=== PATIENT | female | born 2000 | race Caucasian/White ===

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

== ENCOUNTER 2025-06-04 01:04 | Day surgery (SDC) | payer OTHER, SELFPAY ==
--- NOTE | 2025-05-23 15:20 | SUR.PREOP ---
Report to the Outpatient Waiting Room, entrance under the green pavilion located off [facility], at time _0830_ on date _06/04/2025_. Planned Procedure Time: _1030_.? Time changes happen often and if your time is changed the preop area will call you the afternoon before. - You and your visitor will be asked to self-screen and do not enter if you have any COVID symptoms. Please call surgeon if you need to reschedule. - A mask is optional within the hospital at this time. Patients may have clear liquids (water, carbonated beverages, clear teas, apple juice) until 3 hours (0730) prior to surgery with a maximum of 20 ounces. - No food from midnight until time of surgery and no smoking, or chewing tobacco (or any form of nicotine). No chewing gum, candy or mints. - Infants may have breast milk until 4 hours before surgery, infant formula 6 hours prior to surgery. - Children will be allowed to drink immediately following surgery.? If applicable, please bring a bottle or sippy cup to assist with drinking. Juice, water, soda, and popsicles are readily available.? For infants on formula, please bring formula the day of surgery.? Pacifiers are allowed. Take only the following medications with a SIP of water on the morning of surgery: _FLUOXETINE, CONTROL_ DO NOT STOP ANY OF YOUR OTHER PRESCRIPTION MEDICATIONS PRIOR TO SURGERY EXCEPT THE FOLLOWING Hold all vitamins and supplements for 3 days per anesthesiologist. Medications to discontinue per physician _NA_ Date to take last dose_NA_ Please no make-up, nail sudanese, hairspray, perfume, deodorant, or body powder the day of surgery.? No jewelry (including any body piercings) or valuables the day of surgery, leave them at home.? Please take a shower or bath the night before, or the morning of, surgery with an antibacterial soap.? Wear comfortable, loose fitting clothing.? Children are encouraged to wear pajamas. - Jewelry must be removed prior to entering the operating room.? Rings and piercings that are not removed may be cut off. - The hospital will not accept responsibility for valuables.? - Please leave all valuables, including medications, at home the day of surgery. If you are going home after surgery, a licensed flag car driver must drive you home.? - NO public transportation without another adult if you receive anesthesia. - We recommend that an adult stay with you for 24 hours following discharge. - We also recommend that you do not drive, make important decision, drink alcoholic beverages, or take any drugs that were not prescribed by your health care provider for at least 24 hours after your discharge time. For Pediatric surgeries, we recommend two adults accompany the child home. Follow any additional instructions given to you from your surgeon. Telephone instructions given to _TIMOTEO_and asked if any additional questions and then verbalized understanding. Patient advised to call surgeon office or pre surgery nurse liaison [phone] if any additional questions.
[2025-05-23 15:25] VITALS: BMI 40.4
[2025-06-04] VITALS (11 sets, daily range): BP systolic 111–139; BP diastolic 70–89; PULSE 61–116; RESP 12–24; TEMP 36.4; O2SAT 97–100
--- OUTSIDE RECORDS SUMMARY | 2025-06-04 01:09 | XMS_ITS | Clinical Summary ---
Author Organization [facility] Address [address] [place] [id number] Phone Care Team Providers Care Stem Dryer Maintainer Name Role Phone Savita Jimenez APRN, ASSOCIATE PROFESSOR OF MATHEMATICS Primary Care Provider [phone] Allergies Active Allergy Reactions Criticality Noted Date Comments Sulfamethoxazole-Trimethoprim Rash Medium 2022 Medications Nortrel 135, 28, 1-35 MG-MCG Tablet Take 1 Tablet by mouth daily. Active FLUoxetine (PROzac) 10 MG CapsuleIndicati ons:Palpitation ,Anxiety Take 1 Capsule by mouth daily. 90 Capsule 12/22/2024 Active propranolol (INDERAL) 10 MG TabletIndicatio ns:Palpitation, Anxiety Take 1 Tablet by mouth 3 times daily. 90 Tablet 12/22/2024 Active Active Problems Problem Noted Date Diagnosed Date Anxiety 05/20/2023 Mild intermittent asthma without complication Thyroid nodule 05/20/2023 Vapes nicotine containing substance 05/20/2023 Family History Medical History Relation Name Comments No Known Problems Father Relation Name Status Comments Father Alive Mother Alive Social History Tobacco Use Types Packs/Day Years Used Date Smoking Tobacco: Former Cigarettes Smokeless Tobacco: Never Tobacco Cessation:Counseling Given: Not Answered Alcohol Use Standard Drinks/Week Comments Not Currently 0 (1 standard drink = 0.6 oz pur e alcohol) [facility] Utilities Answer Date Recorded In the past 12 months has e [employer], gas, oil, or water company threatened to shut off services in your home? No 01/17/2025 Social Connection and Isolation Panel Answer Date Recorded In a typical week, how many times do you talk on the phone with family, friends, or neighbors? More than three times a week 01/17/2025 How often do you get togethe r with friends or relatives? Once a week 01/17/2025 How often do you attend chur or tenriism services? Patient declined 01/17/2025 Do you belong to any clubs o r organizations such as samaritan groups, unions, fraternal or athletic groups, or school groups? Patient declined 01/17/2025 How often do you attend meet ings of the clubs or organizations you belong to? Patient declined 01/17/2025 Are you , , di vorced, , never , or living with a partner? Never 01/17/2025 AUDIT-C Answer Date Recorded Q1: How often do you have a drink containing alcohol? Never 01/17/2025 Q2: How many drinks containi ng alcohol do you have on a typical day when you are drinking? Patient does not drink Q3: How often do you have si x or more drinks on one occasion? Never 01/17/2025 Overall Financial Resource Strain (CARDIA) Answe r Date Recorded How hard is it for you to pa y for the very basics like food, housing, medical care, and heating? Not very hard 01/17/2025 PHQ-2 Answer Date Recorded Total Score - Questions 1-9 0 11/24 [facility] - Occupational Stress Questionnaire Answer Date Recorded Do you feel stress - tense, restless, nervous, or anxious, or unable to sleep at night because your mind is troubled all the time - these days? Only a little 01/17/2025 Exercise Vital Sign Answer Date Recorde d On average, how many days pe r week do you engage in moderate to strenuous exercise (like a brisk walk)? 2 days 01/17/2025 On average, how many minutes do you engage in exercise at this level? 30 min 01/17/2025 Hunger Vital Sign Answer Date Recorded Within the past 12 months, y ou worried that your food would run out before you got the money to buy more. Never true 01/17/20 25 Within the past 12 months, t he food you bought just didn't last and you didn't have money to get more. Never true 01/17/2025 PRAPARE - Transportation Answer Date Re corded In the past 12 months, has l ack of transportation kept you from medical appointments or from getting medications? No 12/24 In the past 12 months, has l ack of transportation kept you from meetings, work, or from getting things needed for daily living? No 01/17/2025 Housing Stability Vital Sign Answer Nic e Recorded In the last 12 months, was t here a time when you were not able to pay the mortgage or rent on time? No 01/17/2025 In the past 12 months, how m any times have you moved where you were living? 0 01/17/2025 At any time in the past 12 m [facility], were you homeless or living in a retirement (including now)? No 01/17/2025 Sexually Active Control Partners Comments Yes Oral Contraceptive Comments No Sex and Gender Information Value Date Recorded Sex Assigned at Not on file Legal Sex Female 6:14 PM RAISE MINER Gender Identity Not on file Sexual Orientation Not on file Last Filed Vital Signs Vital Sign Reading Time Taken Comments Blood Pressure 120/78 01/19/2025 4:08 PM RAISE MINER Pulse 96 01/19/2025 4:08 PM RAISE MINER Temperature 36.3 C (97.3 F) 01/19/2025 4:08 PM RAISE MINER Respiratory Rate 18 01/19/2025 4:08 PM RAISE MINER Oxygen Saturation 97% 01/19/2025 4:08 PM RAISE MINER Inhaled Oxygen Concentration - - Weight 103 kg (227 lb) 01/19/2025 4:08 PM RAISE MINER Height 162.6 cm (5' 4) 01/19/2025 4:08 PM RAISE MINER Body Mass Index 38.96 01/19/2025 4:08 PM RAISE MINER Plan of Treatment Health Maintenance Due Date Last Done Comments Hepatitis C Virus (HCV) Screening 2001 Meningococcal B Immunization (1 of 2 - Standard) 2017 Pneumococcal Immunization Combined (1 of 2 - PCV) 2020 07/11/2002, 01/10/2002, 2001, Additional history exists Pap Smear 2022 SARS-COV-2 Immunization ( season) 2024 11/19/2021, 03/10/2021, 02/16/2021 Influenza Immunization (#1) 07/23/202508/23, 08/30/2020, 09/30/2017, Additional history exists Respiratory Syncytial Virus (RSV) Immunization (Adult) (1 - 1-dose 75+ series) 2076 Hepatitis B Immunization Completed 002, 2001, 2001 TdaP Immunization Completed 2012 Human Papillomavirus (HPV) Immunization Completed 11/17/2013, 07/03/2013, 2012 Meningococcal Immunization (ACWY) Completed 07/30/2017, 07/03/2013 Rotavirus Immunization Aged Out No lo nger eligible based on patient's age to complete this topic Insurance Care Teams Stem Dryer Maintainer Relationship Specialty Start Date End Date Savita Jimenez, NEGATIVE CUTTER, ASSOCIATE PROFESSOR OF MATHEMATICS [address] [place] [address] PCP - General Certified Nurse Practitioner 12/22/24
--- OUTSIDE RECORDS SUMMARY | 2025-06-04 01:09 | XMS_ITS | Referral Summary ---
Author Organization [facility] at the Medical Office Building Address [address] [place] [id number] Care Team Providers Care Welt Slasher Name Role Phone John Garza NP Primary Care Provider [phone] Encounters Date Type Department Care Team Description 06/01/2025 1:30 PM CDT Office Visit [facility] Primary Care at [address] [phone] John Garza NP Anxiety (Primary Dx) 05/16/2025 Results Follow-Up [facility] of [address] [phone] Ingrid Hector MD NM Thyroid Imaging with Uptakes 05/09/2025 7:33 AM CDT - 05/09/2025 11:59 PM CDT Hospital Encounter [address] [address] Discharge Disposition: Discharge to home or self care 05/09/2025 7:32 AM CDT - 05/09/2025 11:59 PM CDT Hospital Encounter [address] [address] Abnormal thyroid function test; Left thyroid nodule Discharge Disposition: Discharge to home or self care 04/02/2025 Results Follow-Up [facility] [address] [phone] Ingrid Hector MD Thyroid peroxidase antibody (TPO), T3, free, T4, free, TSH 03/30/2025 12:00 PM CDT Lab [address] [phone] Abnormal thyroid function test 03/30/2025 11:30 AM CDT Office [facility] of [facility] [id number] [place] [address] [address] [place] [address] Ingrid Hector MD Abnormal thyroid function test (Primary Dx); Left thyroid nodule 03/29/2025 Documentation [facility] Medical [facility] Primary Care at [address] [phone] John Garza NP 03/27/2025 Results Follow-Up [facility] Primary Care at [address] [phone] John Garza NP 48 HR Holter Monitor 03/19/2025 Results Follow-Up [facility] Primary Care at [address] [phone] John Garza NP Cytology 03/14/2025 8:05 AM CDT - 03/14/2025 11:59 PM CDT Hospital Encounter [address] [address] 2, Amh Rad Rn Jairo Hernandez Ir Thyroid nodule Discharge Disposition: Discharge to home or self care 03/13/2025 8:04 AM CDT - 03/13/2025 11:59 PM CDT Hospital Encounter [facility] [address] [place] [address] Palpitations Discharge Disposition: Discharge to home or self care 03/09/2025 Telephone [facility] Primary Care at [address] [phone] John Garza NP 03/06/2025 Telephone [facility] [address] [place] [address] Elvira Olvera RN 03/06/2025 Telephone [facility] Diabetes and Endocrinology [address] [place] [phone] Ingrid Hector MD New referral to Endocrinology 03/05/2025 Telephone [facility] [address] [place] [address] Elvira Olvera RN 03/05/2025 Orders Only [facility] Medical [facility] Primary Care at [address] [phone] John Garza NP Thyroid nodule (Primary Dx) 03/05/2025 Telephone [facility] Medical [facility] Primary Care at [address] [phone] Shameka Hollis MA General Surgery Referral 03/05/2025 Orders Only [facility] [address] [facility] [address] [place] [address] Marissa Quinones MA from Last 3 Months Allergies Active Allergy Reactions Criticality Noted Date Comments Sulfa (Sulfonamide Antibiotics) Hives Medium 05/22 Sulfamethoxazole-Trimethoprim Hives,Rash Medium 2022 Medications Nortrel , 28, 1-35 mg-mcg per tablet Take 1 tablet by mouth daily Active propranoloL (INDERAL) 10 mg tabletIndicatio ns:Anxiety Take 1 tablet (10 mg total) by mouth 3 (three) times a day as needed (for anxiety) 90 tablet 3 5 Active albuterol HFA (PROVENTIL HFA,VENTOLIN HFA,PROAIR HFA) 90 mcg/actuation inhaler Inhale 2 puffs every 6 (six) hours as needed for wheezing Active FLUoxetine (PROzac) 20 mg capsuleIndicati ons:Anxiety Take 1 capsule (20 mg total) by mouth daily 90 capsule 3 5 Active FLUoxetine 10 mg tablet/capsuleI ndications:Anxi ety Take 1 tablet/capsul e (10 mg total) by mouth daily 90 tablet/capsu le 3 5 06/01/20 25 Discontinu ed(Patient Reported) Active Problems Problem Noted Date Diagnosed Date Anxiety 05/20/2023 Assessment & Plan (06/01/2025 1:52 PM CDT): Orders: FLUoxetine (PROzac) 20 mg capsule; Take 1 capsule (20 mg total) by mouth daily Assessment & Plan (03/02/2025 4:08 PM CDT): Orders: FLUoxetine 10 mg tablet/capsule; Take 1 tablet/capsule (10 mg total) by mouth daily propranoloL (INDERAL) 10 mg tablet; Take 1 tablet (10 mg total) by mouth 3 (three) times a day as needed (for anxiety) Mild intermittent asthma without complication Assessment & Plan (03/02/2025 4:08 PM CDT): Thyroid nodule 05/20/2023 Assessment & Plan (03/02/2025 4:08 PM CDT): Orders: Ambulatory referral to Endocrinology; Future Ambulatory referral to General Surgery; Future Immunizations Immunization Administration Dates Next Due DTP 10/10/2002, 2,2001,09/06 HPV, Quadrivalent 11/17/2013,07/03/2013,07/06/20 12 Hep B, Adolescent or Pediatric 01/10/2002,2000,2001 HiB 07/11/2002, 2,2001,09/06 IPV 01/10/2002,2001,2001 Influenza, Quadrivalent, Spl it, Preservative Free, Intramuscular 08/30/2020,09/30/2017,10/22/2014 Influenza, Trivalent, IM (MDV) 09/18/2021 Influenza, Trivalent, Preser vative Free, Intramuscular 10/05/2012 MMR 07/11/2002 Meningococcal MCV4P (Menactra) 07/30/2017,2012 Pneumococcal Conjugate 7-Valent 07/11/20 02,01/10/2002,2001,09/06 Tdap 2012 Varicella 07/11/2002 Social History Tobacco Use Types Packs/Day Years Used Date Smoking Tobacco: Every Day Vaping Passive Smoke Exposure: Past Smokeless Tobacco: Never Tobacco Cessation:Ready to Q uit: Not Asked; Counseling Given: Not Answered AUDIT-C Answer Date Recorded Q1: How often do you have a drink containing alc ohol? Monthly or less 03/02/2025 Q2: How many drinks containi ng alcohol do you have on a typical day when you are drinking? 1 or 2 03/02/2025 Q3: How often do you have si x or more drinks on one occasion? Never 03/02/2025 PHQ-2 Answer Date Recorded PHQ-2 Total Score (If total score is 3 or more points, staff should administer the PHQ-9) 0 06/01/2025 Personal Safety Answer Date Recorded Have you ever been in or are you currently in a harmful physical or emotional relationship or is someone making you feel afraid or unsafe? 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 Gender Identity Not on file Sexual Orientation Not on file Last Filed Vital Signs Vital Sign Reading Time Taken Comments Blood Pressure 106/72 06/01/2025 1:36 PM CDT Pulse 75 06/01/2025 1:36 PM CDT Temperature 36.5 C (97.7 F) 06/01/2025 1:36 PM CDT Respiratory Rate 18 03/14/2025 8:45 AM CDT Oxygen Saturation 97% 06/01/2025 1:36 PM CDT Inhaled Oxygen Concentration - - Weight 106.6 kg (235 lb) 06/01/2025 1:36 PM CDT Height 162.6 cm (5' 4) 06/01/2025 1:36 PM CDT Body Mass Index 40.34 06/01/2025 1:36 PM CDT Plan of Treatment Not on file Procedures Procedure Name Priority Date/Time Associated Diagnosis Comments NM THYROID IMAGING WITH UPTAKE(S) Schedule Routine, Read Routine (OP Routine) 05/09/2025 2:36 PM CDT Abnormal thyroid function test Left thyroid nodule TSH Routine 03/30/2025 12:02 PM CDT Abnormal thyroid function test T4, FREE Routine 03/30/2025 12:02 PM CDT Abnormal thyroid function test T3, FREE Routine 03/30/2025 12:02 PM CDT Abnormal thyroid function test THYROID STIMULATING IMMUNOGLOBULIN Routine 03/30/2025 12:02 PM CDT Abnormal thyroid function test THYROID PEROXIDASE ANTIBODY Routine 03/30/2025 12:02 PM CDT Abnormal thyroid function test TSH RECEPTOR ANTIBODY Routine 03/30/2025 12:02 PM CDT Abnormal thyroid function test US GUIDED THYROID FINE NEEDLE ASPIRATION 1ST LESION Schedule Routine, Read Routine (OP Routine) 03/14/2025 9:59 AM CDT Thyroid nodule CYTOLOGY Routine 03/14/2025 12:00 AM CDT Thyroid nodule HOLTER MONITOR 48 HR Routine 03/13/2025 8:08 AM CDT Palpitations HM PAP SMEAR Routine 05/13/2023 from Last 3 Months or Most Recently Relevant to Health Maintenance Results * NM Thyroid Imaging with Uptakes (05/09/2025 2:36 PM CDT) Anatomical Region Laterality Modality N/A Nuclear Medicine 05/09/2025 2:51 PM CDT Narrative 05/09/2025 2:56 PM CDT EXAM DESCRIPTION: NM THYROID IMAGING WITH UPTAKE(S) REASON FOR STUDY: Low TSH, thyroid nodule, Uptake, increased or decreased, focal or diffuse TECHNIQUE: Delayed multiplanar scintigrams were obtained. RADIOPHARMACEUTICAL: 236 uCi I-123 (sodium iodide) p.o. COMPARISON: None. Correlation with the thyroid ultrasound and FNA 01/08/2025 and FNA 03/14/2025. FINDINGS: There is a hyperfunctioning thyroid nodule which suppresses remainder of the thyroid gland activity. This appears to be just to the left of the suprasternal notch marker and note is made of a left thyroid nodule on ultrasound therefore this is most likely a hyperfunctioning autonomous left thyroid nodule. The 6-hour radioactive iodine uptake is 18.6 % (normal range 4-19%). IMPRESSION: Hyperfunctioning autonomous thyroid nodule. THIS IS AN ELECTRONICALLY VERIFIED FINAL REPORT 05/09/2025 2:56 PM - Electronically signed by Richard Ghosh M.D. CH: CH Report ID: [id number] Reading Location: [id number] Procedure Note Richard Ghosh Jr., MD - 05/09/2025 EXAM DESCRIPTION: NM THYROID IMAGING WITH UPTAKE(S) REASON FOR STUDY: Low TSH, thyroid nodule, Uptake, increased ordecreased, focal or diffuse TECHNIQUE: Delayed multiplanar scintigrams were obtained. RADIOPHARMACEUTICAL: 236 uCi I-123 (sodium iodide) p.o. COMPARISON: None. Correlation with the thyroid ultrasound and FNA01/08/2025 and FNA 03/14/2025. FINDINGS: There is a hyperfunctioning thyroid nodule which suppresses remainder ofthe thyroid gland activity. This appears to be just to the left of the suprasternal notch marker and note is made of a left thyroid nodule on ultrasound therefore this is most likely a hyperfunctioning autonomousleft thyroid nodule. The 6-hour radioactive iodine uptake is 18.6 %(normal range 4-19%). IMPRESSION: Hyperfunctioning autonomous thyroid nodule. THIS IS AN ELECTRONICALLY VERIFIED FINAL REPORT 05/09/2025 2:56 PM - Electronically signed by Richard Ghosh M.D. CH: CH Report ID: [id number] Reading Location: [place] [address] us Ingrid Fuller MD IM NM PROCEDURES F inal Result * TSH receptor antibody (03/30/2025 12:02 PM CDT) TSH receptor ab <1.10 0.00 - 1.75 IUnits/L [facility] Comment: ADDITIONAL INFORMATION At a decision limit of 1.75 IU/L, this assay has 97% sensitivity and 99% specificity for detection of Graves' disease. In healthy individuals and in patients with thyroid disease without diagnosis of Graves' disease, the upper limit of anti-TSHR values are 1.22 IU/L and 1.58 IU/L, respectively (97.5th percentiles). Test Performed by: [facility] [address] [place] [address] Steak Tenderizer Machine: Estrellita Barrera Ph.D.; CLIA# [id number] Blood 03/30/2025 12:0 2 PM CDT 03/30/2025 6:36 PM CDT Ingrid Fuller MD LAB BLOOD ORDERABLE S Final Result Performing Organization Address City/[facility]/ZIP Co de Phone Number [place] [address] [place] [address] [facility] * Thyroid peroxidase antibody (TPO) (03/30/2025 12:02 PM CDT) Anti Thyroid Peroxidase <30 <=34 IUnits/mL Comment: ATPO Interpretive Data Results may be up to 28% higher in patients receiving Itraconazole. Current interpretive data was last revised 2021. Testing performed by: [facility], [address] [place]., [address] Blood 03/30/2025 12:0 2 PM CDT 03/30/2025 9:38 PM CDT Ingrid Fuller MD LAB BLOOD [place] [address] [address] [facility] [place] [address] * Thyroid stimulating immunoglobulin (03/30/2025 12:02 PM CDT) TSIG <1.0 <=1.3 [facility] Comment: Test Performed by: [facility] [address] [place] [address] Steak Tenderizer Machine: Estrellita Barrera Ph.D.; CLIA# [id number] Blood 03/30/2025 12:0 2 PM CDT 03/30/2025 6:49 PM CDT us Ingrid Fuller MD LAB BLOOD ORDERABLE S Final Result [place] [address] [place] [address] [facility] * T3, free (03/30/2025 12:02 PM CDT) Free T3 4.0 2.0 - 4.4 pg/mL Blood 03/30/2025 12:0 2 PM CDT 03/30/2025 6:36 PM CDT us Ingrid Fuller MD LAB BLOOD ORDERABLE S Final Result Performing Organization Address City/[facility]/ZIP Co de Phone Number [facility] [address] [place] [address] * (ABNORMAL) TSH (03/30/2025 12:02 PM CDT) Thyroid Stimulating Hormone 0.02(L) 0.30 - 4.20 mcIUnit/mL Blood 03/30/2025 12:0 2 PM CDT 03/30/2025 6:36 PM CDT us Ingrid Fuller MD LAB BLOOD ORDERABLE S Final Result [place] [place] [address] [facility] [place] [address] * T4, free (03/30/2025 12:02 PM CDT) Free T4 1.07 0.90 - 1.70 ng/dL Blood 03/30/2025 12:0 2 PM CDT 03/30/2025 6:36 PM CDT us Ingrid Fuller MD LAB BLOOD ORDERABLE S Final Result [place] [address] [address] [place] [address] * US Guided Thyroid Fine Needle Aspiration 1st Lesion (03/14/2025 9:59 AM CDT) Anatomical Region Laterality Modality Thyroid N/A Ultrasound 03/14/2025 12:3 4 PM CDT Addenda Addendum by Paul Martino DO on 03/15/2025 2:58 PM CDT ADDENDUM: This addendum report supersedes the original report dated Pathology impression: 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 Pending Afirma testing. END OF ADDENDUM REPORT THIS IS AN ELECTRONICALLY VERIFIED FINAL REPORT 03/15/2025 2:58 PM Addendum Electronically signed by Paul Martino D.O. PS: PS Report ID: [id number] Reading Location: [id number] Narrative 03/14/2025 12:35 PM CDT EXAM DESCRIPTION: US GUIDED THYROID FINE NEEDLE ASPIRATION 1ST LESION HISTORY: Thyroid nodule ultrasound guided fine-needle aspiration of this nodule was requested. COMPARISON: 01/05/2025 TECHNIQUE/FINDINGS: Comparison was made to thyroid ultrasound dated 01/05/2025. Immediately prior to the procedure, the healthcare team performed the safety pause and verbally confirmed that the patient, the planned procedure, the site and side were accurate. Preprocedure images redemonstrate the nodule in the left thyroid lobe, which was previously characterized as a TI-RADS 3 nodule. The skin was prepped using standard aseptic technique. Local anesthesia was achieved with injection of 5 mL of 1% lidocaine in the skin and superficial tissues. Fine needle aspiration was performed of the thyroid nodule under sonographic guidance with 4 passes made with a 25-gauge needle. Needle placement was documented with sonographic images. An on-site pathologist confirmed specimen adequacy. No complications were noted. Hemostasis was achieved. A sterile bandage and an ice pack were applied to the site. The patient tolerated the procedure well without complication. Post procedure pain control was adequate. Post procedure education was completed including pain management instructions. Estimated blood loss: <5 mL IMPRESSION: Ultrasound guided fine-needle aspiration of a left thyroid nodule. Pathology is pending. THIS IS AN ELECTRONICALLY VERIFIED FINAL REPORT 03/14/2025 12:35 PM - Electronically signed by Paul Martino D.O. PS: PS Report ID: [id number] Reading Location: [id number] Procedure Note Paul Martino, DO - 03/14/2025 EXAM DESCRIPTION: US GUIDED THYROID FINE NEEDLE ASPIRATION 1ST LESION HISTORY: Thyroid nodule ultrasound guided fine-needle aspiration of this nodule was requested. COMPARISON: 01/05/2025 TECHNIQUE/FINDINGS: Comparison was made to thyroid ultrasound dated 01/05/2025. Immediatelyprior to the procedure, the healthcare team performed the safety pause andverbally confirmed that the patient, the planned procedure, the site and side were accurate. Preprocedure images redemonstrate the nodule in the left thyroid lobe,which was previously characterized as a TI-RADS 3 nodule. The skin was prepped using standard aseptic technique. Local anesthesia was achieved withinjection of 5 mL of 1% lidocaine in the skin and superficial tissues. Fine needle aspiration was performed of the thyroid nodule under sonographic guidancewith 4 passes made with a 25-gauge needle. Needle placement was documentedwith sonographic images. An on-site pathologist confirmed specimen adequacy. No complications were noted. Hemostasis was achieved. A sterile bandage andan ice pack were applied to the site. The patient tolerated the procedurewell without complication. Post procedure pain control was adequate. Post procedure education was completed including pain management instructions. Estimated blood loss: <5 mL IMPRESSION: Ultrasound guided fine-needle aspiration of a left thyroid nodule. Pathology is pending. THIS IS AN ELECTRONICALLY VERIFIED FINAL REPORT 03/14/2025 12:35 PM - Electronically signed by Paul Martino D.O. PS: PS Report ID: [id number] Reading Location: [id number] us John Garza CONSTITUTIONAL LAW PROFESSOR IMG US PROCEDURES Edited Resu lt - Final * Cytology (03/14/2025 12:00 AM CDT) Fluid (Thyroid Gland (Cytology)) 03/14/2025 9:42 AM CDT Narrative PATHOLOGY [facility] ([facility]) - 03/15/2025 2:18 PM CDT EPIC results best viewed via link to PDF [facility] Department of Pathology [address] [place] [address] Note to Patients: This report may contain a detailed description of human tissue sent by a health care provider to the laboratory for pathologic evaluation. The content of this report is essential for diagnosis and may provide important critical findings. This information may be unfamiliar to patients to review without a medical professional present. It is advised that the patient review this report in the presence of a health care provider who can answer questions and explain the details. 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 - Pending Afirma testing. Bhargav Lizama M.D. Report Electronically Reviewed and Signed Out By Bhargav Lizama M.D. 03/15/2025 14:18:56VANESSA Longoria(ASCP)Addenda: Addendum Addendum Comment Material was submitted to [facility] for Afirma thyroid molecular analysis on the left lower nodule fine-needle aspirate (Nodule A on the Afirma report) The report can be viewed in the patient s electronic medical record. If access to the EMR is not available, please call pathology for a hard copy of the report ([phone]). Bhargav Lizama M.D.Report Electronically Reviewed and Signed Out By Bhargav Lizama M.D. 03/26/2025 14:51:55 Specimen(s) Received: A: FNA, Thyroid, Left Inferior Nodule Clinical History: The patient is a 24 year old female with a thyroid nodule Immediate Assessment: Site A: Left inferior thyroid 3.5 cm Pass #1, diagnosis: Rare follicular cells. Pass #2, diagnosis: Scattered follicular cell groups (at least 6 groups of at least 10 cells). Pass #3, diagnosis: Scattered follicular cell groups (at least 6 groups of at least 10 cells). Juan Luis Guzmán MD Gross Description: 1 container labeled Left Inferior Thyroid Nodule received with 30 cc pink fluid. 6 slides received from 3 passes. Entire specimen processed. 1 ThinPrep made. QNS for cell block. Afirma vial received and stored. Microscopic Description: Sections show scattered follicular groups and is considered adequate for evaluation. Many of the groups are composed of fairly round monotonous nuclei. There are some groups with Hurthle cell change as well as microfollicle formation seen. No definitive features of papillary thyroid carcinoma are appreciated. There is some occasional background colloid present. Given the microfollicle formation as well as Hurthle cell change, the lesion is best classified as atypia of undetermined significance (Yankton 3). A sample will be sent for Afirma attesting and the results will be reported in an addendum. The performance characteristics of some immunohistochemical stains, fluorescence in-situ hybridization tests and immunophenotyping by flow cytometry cited in this report (if any) were determined by the Surgical Pathology Department at as part of an ongoing quality process engineer program and in compliance with federally mandated regulations drawn from the Clinical Laboratory Improvement Act of 1988 (CLIA '88). Some of these tests rely on the use of analyte specific reagents and are subject to specific labeling requirements by the US Food and Drug Administration. Such diagnostic tests may only be performed in a facility that is certified by the Department of Health and Human Services as a high complexity laboratory under CLIA '88. The FDA has determined that such clearance or approval is not necessary. This test is used for clinical purposes. It should not be regarded as investigational or for research. Nevertheless, federal rules concerning the medical use of analyte specific reagents require that the following disclaimer be attached to the report: This test was developed and its performance characteristics determined by the Surgical Pathology Department [facility]. It has not been cleared or approved by the U. S. Food and Drug Administration. Unless otherwise noted all cytology processing, staining and screening is performed at ([address] [place] [address]). REPORT IMAGES AND SCANNED DOCUMENTS, IF INCLUDED, ONLY VIEWABLE IN PDF VERSION OF REPORT us John Garza CONSTITUTIONAL LAW PROFESSOR LAB CYTOLOGY ORDERABLES Final Result PATHOLOGY [facility] ([address] [id number] * 48 HR Holter Monitor (03/13/2025 8:08 AM CDT) Anatomical Region Laterality Modality Electrocardiogra phy 03/13/2025 8:20 AM CDT Narrative 03/26/2025 2:16 PM CDT [address] [address] HOLTER MONITOR Patient Name: TIMOTEO SYKES : 2000 Study Date: 03/13/2025 8:20:50 AM Gender: F Tech: Ref Provider: JOHN GARZA Height(Cm): BSA: Weight(Kg): Order Provider: JOHN GARZA PROCEDURES: Holter Report: Holter Monitor Report. INDICATIONS: R00.2 Palpitations. FINDINGS: Protocol: Recording Duration (Ordered): [id number] Number of Diary entries 2025-03-13 08:20:50 CONCLUSIONS: 1. Predominant rhythm is normal sinus rhythm with a minimum heart rate of 48 beats per minute in sinus and a maximum heart rate of 158 beats per minute also in sinus. Average heart rate of 77 beats per minute. Heart rate was controlled 91% of the time, tachy 7% of the time and theodora 2% of the time. Total monitoring time of 2 days 0 hours 0 minutes. 2. Heart rate and rate variability is appropriate. 3. No prolonged pauses. 4. Rare PACs with only 20 PACs corresponding to less than 1% of total beats. There was an asymptomatic 5 beat run of SVT at 141 beats per minute. 5. Rare PVCs with only 2 PVCs amounting to less than 1% of total beats. 6. There were 4 patient activated events most with symptoms of rapid/fast heartbeat and fluttering/skipped beats. All noted to be in sinus rhythm ranging in heart rate from 72-96 beats per minute with no significant findings. Electronically Signed By: Dr Brian Hanson 03/26/2025 2:15:23 PM CDT Procedure Note Brian Hanson MD - 03/26/[address] [place] [address] HOLTER MONITOR Patient Name: TIMOTEO SYKES : 2000 Study Date: 03/13/2025 8:20:50 AM Gender: F Tech: Ref Provider: JOHN GARZA Height(Cm): BSA: Weight(Kg): Order Provider: JOHN GARZA PROCEDURES: Holter Report: Holter Monitor Report. INDICATIONS: R00.2 Palpitations. FINDINGS: Protocol: Recording Duration (Ordered): [id number] Number of Diary entries 2025-03-13 08:20:50 CONCLUSIONS: 1. Predominant rhythm is normal sinus rhythm with a minimum heart rate of48 beats per minute in sinus and a maximum heart rate of 158 beats per minute also insinus. Average heart rate of 77 beats per minute. Heart rate was controlled 91% of the time, tachy 7% of the time and brady2% of the time. Total monitoring time of 2 days 0 hours 0 minutes. 2. Heart rate and rate variability is appropriate. 3. No prolonged pauses. 4. Rare PACs with only 20 PACs corresponding to less than 1% of totalbeats. There was an asymptomatic 5 beat run of SVT at 141 beats per minute. 5. Rare PVCs with only 2 PVCs amounting to less than 1% of total beats. 6. There were 4 patient activated events most with symptoms of rapid/fastheartbeat and fluttering/skipped beats. All noted to be in sinus rhythm ranging in heart rate from 72-96 beats perminute with no significant findings. Electronically Signed By: Dr Brian Hanson 03/26/2025 2:15:23 PM CDT John Garza NP [facility] PROCEDURE S Final Result * PAP SMEAR (05/13/2023) SCRIBED Pap test neg 05/13/2023 Historical Provider HEALTH MAINTENANCE Final Result from Last 3 Months or Most Recently Relevant to Health Maintenance Insurance [facility] PL[facility] Care Teams Welt Slasher Relationship Specialty Start Date End Date John Garza NP [address] [facility] [address] [place] [address] PCP - General Internal Medicine 03/02/25
--- OUTSIDE RECORDS SUMMARY | 2025-06-04 01:09 | XMS_ITS | Data Portability ---
Author Organization [facility] Address [address] [place] [address] Care Team Providers Care Traffic Analyst Name Role Phone EUGENIO OLMOS Primary Care Provider JOHN GARZA Primary Care Provider Assessment No assessment recorded. Plan of Treatment Reminders Order Date Submit Date Provider Last Modified By Organization Details Last Modified Time Details Appointments SURG Salpingec ada 2024 10:30A Marshall BERRY MD Not available Not available Not available SURG POST OP 2024 08:30A Marshall BERRY MD Not available Not available Not available Lab None recorded. Referral None recorded. Procedures None recorded. Surgeries salpingec ada (SURG) 2024 025 [id number], [address], 05/08/2025 08:59:01 salpingec ada (SURG) 2024 025 [email or web address] [facility], [address] [place] [address], [address], 04/11/2025 11:34:03 Imaging None recorded. Medication Orders Nortrel 1/35 (28) 1 mg-35 mcg tablet 2024 025 [id number], [address], [place], [place], [phone], 02/09/2025 15:36:07 Patient TargetsNo targets recorded. Patient InstructionsNo instructions recorded. Reason for Referral None Reported. Procedures Surgical History Date Name Laterality Status Provider Name and Address Organization Details Recorded Time 04/22/2023 Date of Last Pap Smear completed Nay Can [facility] 02/09/2025 14:47:22 Imaging Results None recorded. Procedure Notes None recorded. Medical Equipment None Reported. Allergies Allergen ID Allergen Name Allergen Category Reaction Reaction Severity Criticality Documentation Date Start Date Code Code System Note Provider Name and Address Organization Details Recorded Time 66793 Substance with sulfonami de structure and antibacte rial mechanism of action (substanc e) medicatio n hives Not available Not available 02/09/2025 82338 8003 SNOMED Nay Pamella [facility] 14:47:22 Medications Name Sig Start Date Stop Date Status Note LastModified by Organization Details LastModified Time propranolol 10 mg tablet TAKE 1 TABLET BY MOUTH THREE TIMES DAILY active Not Available Not Available No t Available Nortrel 1/35 (28) 1 mg-35 mcg tablet TAKE 1 TABLET BY MOUTH EVERY DAY active Not Available Not Available No t Available fluoxetine 10 mg capsule TAKE 1 CAPSULE BY MOUTH DAILY active Not Available Not Available No t Available Vitals Date Recorded Body weight Body mass index (BMI) Body height Systolic And Diastolic Provider Name and Address Organization Details Last Updated DateTime 02/09/2025 254778.25 g 39.5 kg/m2 162.56 cm 128/86 mm[Hg] Nay Pamella [facility] 02/09/2025 15:03:00 Date Recorded Body height Body mass index (BMI) Body weight Systolic And Diastolic Provider Name and Address Organization Details Last Updated DateTime 03/16/2025 162.56 cm 40.2 kg/m2 349007.61 g 125/85 mm[Hg] [facility] 03/16/2025 14:56:42 Date Recorded Body height Body mass index (BMI) Body weight Systolic And Diastolic Provider Name and Address Organization Details Last Updated DateTime 05/04/2025 162.56 cm 40.5 kg/m2 309675.8 g 124/85 mm[Hg] [facility] 05/04/2025 14:40:52 Social History Question Answer Notes LastModified by Organizat ion Details LastModified Time Do You Have An Advance Directive? No [email or web address] Information n ot available 02/09/2025 Are You Blind Or Do You Have Difficulty Seeing? No [email or web address] Information n ot available 02/09/2025 What Is Your Level Of Caffeine Consumption? Occasional [email or web address] Information not available 02/09/2025 In The 14 Days Before Symptom Onset, Have You Had Close Contact With A Laboratory-confirm ed COVID-19 While That Case Was Ill? No [email or web address] Information n ot available 02/09/2025 In The 14 Days Before Symptom Onset, Have You Had Close Contact With A Person Who Is Under Investigation For COVID-19 While That Person Was Ill? No [email or web address] Information not available 02/09/2025 Have You Been To An Area Known To Be High Risk For COVID-19? No [email or web address] Information not available 02/09/2025 Are You Deaf Or Do You Have Serious Difficulty Hearing? No [email or web address] Information not available 02/09/2025 What Type Of Diet Are You Following? REGULAR [email or web address] Information n ot available 02/09/2025 What Is The Highest Grade Or Level Of School You Have Completed Or The Highest Degree You Have Received? NN04584-6 [email or web address] Information not available 02/09/2025 Are There Any Guns Present In Your Home? Yes [email or web address] Information not available 02/09/2025 Do You Use Protection During Sex? Always [email or web address] Information not available 02/09/2025 Do You Use Your Seat Belt Or Car Seat Routinely? Yes [email or web address] Information not available 02/09/2025 Are You Sexually Active? Yes [email or web address] Information not available 02/09/2025 Do You Have Smoke And Carbon Monoxide Detectors In Your Home? Yes [email or web address] Information not available 02/09/2025 How Much Tobacco Do You Smoke? No [email or web address] Information not available 02/09/2025 Do You Use Sunscreen Routinely? Yes [email or web address] Information not available 02/09/2025 Have You Used IV Drugs? No [email or web address] Information not available 02/09/2025 Do You Have Difficulty Walking Or Climbing Stairs? No [email or web address] Information not available 02/09/2025 Sex: Unknown Functional Status Question Answer Note LastModified by Organizat ion Details LastModified Time Do you use any illicit or recreational drugs? No [email or web address] Information not available 02/09/2025 What is your level of alcohol consumption? None [email or web address] Information not available 02/09/2025 Are you able to walk? YESWOREST [email or web address] Information not available 02/09/2025 Are you able to care for yourself? Yes [email or web address] Information n ot available 02/09/2025 Do you have difficulty dressing or bathing? No [email or web address] Information not available 02/09/2025 What is your exercise level? Moderate [email or web address] Information not available 02/09/2025 Mental Status Question Answer Note LastModified by Organization D etails LastModified Time Do you feel stressed (tense, restless, nervous, or anxious, or unable to sleep at night)? [id number] [email or web address] Information not available 02/09/2025 Family History Relationship Description Onset Age of this Age Resolved Age Notes LastModified by Organization Details LastModified Time Father No current problems or disability [email or web address] Not available 02/09 15:05:05 Mother No current problems or disability Not available 02/09 15:05:05 Medical History Condition Response Anxiety Disorder Y History of STI Y Anemia Y Thyroid Problems Y Asthma Y Gynecological History Statement/Question Response Abnormal Pap Y Flow Moderate Date of LMP 04/10/2025 N Was last menstrual period normal Y STIs/STDs Y HPV Vaccine Y Duration of Flow (days) 4 Current Control Method Multiple Me thods Are cycles usually normal Y Frequency of Cycle (Q days) 28 Sexually Active? Y Menses Monthly Y Age of first menstrual cycle 12 Date of Last Pap Smear 04/22/2023 Sexual Problems? N Desired Control Method Sterilizati on LMP Definite N 04/22/2022 Obstetrics History GPAL:G 0 P 0 0 0 0 Past Encounters Encounter ID Performer Location Encounter Start Date Encounter Closed Date Diagnosis/Indication Diagnosis SNOMED-CT Code Diagnosis ICD10 Code Diagnosis Note [id number] TIMOTEO BERRY MD [place] [address] [address] 02/09/2025 14:45:28 02/09/2025 15:47:34 Gynecologic examination 14611353 Z01.419 Well woman care- Cervical cancer screening: Pap smear not indicated (next 2025)- Breast cancer screening: mammogram not indicated- Colon cancer screening: does not qualify- HPV immunizati on: received- STD testing: declined- hereditary cancer screening: does not qualify for testing Counseling for elective sterilization done 1022185003 52411 Z30.2 - patient considerin g elective sterilizat ion- briefly discussed permanence of the procedure and that IVF would be required for any future pregnancie s- patient voices understand ing- will return for preop visit to further discuss [id number] Jhonny Kauffman MD [place] [address] [address] 03/16/2025 14:29:39 03/16/2025 15:34:50 Consultation [id number] Z30.09 This patient presents for female sterilizat ion. The patient desires tubal ligation. She is certain that she no longer wants to be fertile. We discussed sterilizat ion in detail. I described the procedure to the patient in detail. I informed her that we remove the tubes entirely in a. We discussed alternativ es. The patient knows they are highly effective reversible options. She understand s that the Salpingect corby n is permanent. We discussed failure rate. She understand s there is reported failure rate to salpingect corby.. As described salpingect corby and removal of the entire tube. I discussed the reduction in ovarian cancer risk. The patient understand s and is ready to proceed with laparoscop ic bilateral tubal ligation. She understand s the tubes We will be removed. S. Her surgery will be scheduled. spent more than 30 minutes on her care in total.. We made a decision to perform surgery. [id number] TIMOTEO BERRY MD [place] [address] [address] 05/04/2025 14:26:48 05/04/2025 16:04:33 Consultation [id number] Z30.09 - patient desires permanent sterilizat ion- discussed risks, benefits, and alternativ es of bilateral salpingect corby, including risks of bleeding, infection and injury to surroundin g organs. Also discussed alternativ e contracept bre options including partner vasectomy and patient declines.- tubal consents signed at previous visit- no further questions- will proceed with laparoscop ic bilateral salpingect corby Health Concerns Section Related Observation LastModified by Organization Detai ls LastModified Time None Recorded Concern Status LastModified by Organization Details LastModified Time None Recorded Advance Directives Directive N: Payers Insurance Date Sequence Insurance Name Policy Number Policy Vicente Covered Member ID Vicente Member ID Guarantor Name 06/01/2025 1 [facility] [id number] Cliff Snider [id number] Timoteo Thacker Notes Date Note Type Note Provider Name and Address Organization Details Recorded Time 02/09/2025 text/html Presents today f or her annual well-woman exam. Denies abnormal vaginal discharge. She is sexually active and denies dyspareunia. She is using OCPs for contraception, and she states that she is satisfied with this method for now, however is considering permanent sterilization. She has not noticed any changes or masses in her breasts. Regular periods on OCPs TIMOTEO BERRY MD [address], [place], [address], [facility] 02/09/2025 15:36:34 03/16/2025 text/html This patient presents for female sterilization. The patient desires tubal ligation. She is certain that she no longer wants to be fertile. We discussed sterilization in detail. I described the procedure to the patient in detail. I informed her that we remove the tubes entirely in a. We discussed alternatives. The patient knows they are highly effective reversible options. She understands that the Salpingectomy n is permanent. We discussed failure rate. She understands there is reported failure rate to salpingectomy.. As described salpingectomy and removal of the entire tube. I discussed the reduction in ovarian cancer risk. The patient understands and is ready to proceed with laparoscopic bilateral tubal ligation. She understands the tubes We will be removed. S. Her surgery will be scheduled. spent more than 30 minutes on her care in total.. We made a decision to perform surgery. Jhonny Kauffman MD [address], [place], [address], [facility] 03/16/2025 15:31:44 05/04/2025 text/html Patient presents for discussion of permanent sterilization. She does not desire childbearing and would like a permanent form of control. No PSH. She has discussed her options and would like to move forward with tubal ligation. Using OCPs for cycle control. TIMOTEO BERRY MD [address], [place], [address], [place] [facility] 05/04/2025 16:02:46 OBGyn Episode No OBEpisode recorded.
--- OUTSIDE RECORDS SUMMARY | 2025-06-04 01:09 | XMS_ITS | Clinical Summary ---
Author Organization [facility] Address [address] [place] [address] Care Team Providers Care Mental Health Professional Name Role Phone Pcp, Gaye Elliott [facility] Primary Care Provide r Unavailable Source Comments [facility],non-owned Affiliates and Associated Physician Practices is amultiple site organization consisting of ambulatory clinics and hospital sitesin [place], [place], [place] and [place]. This disclosure is being madepursuant to the Care Everywhere program and may not contain all information available regarding this patient. Last updated 18.gdgt [facility] Allergies Active Allergy Reactions Criticality Noted Date Comments Sulfamethoxazole W-Trimethoprim Rash Medium 04/23 Medications * Be aware that medications may not be up to date on this document. Alwaysverify current medications with the patient. norethindrone-et hinyl estradiol (Nortrel 1/35, 28,) 1-35 MG-MCG tablet TAKE 1 TABLET BY MOUTH DAILY 84 tablet 08/31/2024 Active Active Problems Problem Noted Date Diagnosed Date Anxiety 05/20/2023 Assessment & Plan (05/20/2023 11:02 AM CDT): - h/o citalopram x one year, no rx currently, declines restarting rx at this time, will f/u PRN - no current counseling, encouraged initiating counseling, list of resources provided - recommend exercise routinely to alleviate anxiety symptoms Thyroid nodule 05/20/2023 Assessment & Plan (05/20/2023 11:04 AM CDT): - c/s ENT, check TSH Routine general medical exam ination at a health care facility 05/20/2023 Overview (05/20/2023): 05/20/2023 Assessment & Plan (05/20/2023 11:08 AM CDT): - patient declined preventive vaccines today - 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 and is up to date, currently taking oral BCPs Vapes nicotine containing substance 05/20/2023 Assessment & Plan (05/20/2023 11:01 AM CDT): - vapes nicotine products daily, encouraged cessation Mild intermittent asthma without complication Assessment & Plan (05/20/2023 11:11 AM CDT): - rx albuterol inhaler PRN, currently using approximately monthly - continue current rx Family History Medical History Relation Name Comments Diabetes - Type 2 Maternal Grandfather Diabetes - Type 2 Maternal Grandmother Arrhthymia Mother SVT s/p cardioa blation Diabetes - Type 2 Paternal Grandfather Diabetes - Type 2 Paternal Grandmother Relation Name Status Comments Maternal Grandfather Maternal Grandmother Mother Paternal Grandfather Paternal Grandmother Social History Tobacco Use Types Packs/Day Years Used Date Smoking Tobacco: Never Smokeless Tobacco: Never Tobacco Cessation:Counseling Given: Not Answered Alcohol Use Standard Drinks/Week Comments Yes 0 (1 standard drink = 0.6 oz pur e alcohol) rare PHQ-2 Answer Date Recorded PHQ2 TOTAL SCORE 2 05/20/2023 Comments No Sex and Gender Information Value Date Recorded Sex Assigned at Not on file Legal Sex Female 5:16 PM CDT Gender Identity Not on file Sexual Orientation Not on file 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 Not on file Not on file Not on file Last Filed Vital Signs Vital Sign Reading Time Taken Comments Blood Pressure 112/80 05/20/2023 10:23 AM CDT Pulse 83 05/20/2023 10:23 AM CDT Temperature - - Respiratory Rate - - Oxygen Saturation 95% 05/20/2023 10:23 AM CDT Inhaled Oxygen Concentration - - Weight 72.6 kg (160 lb) 05/20/2023 10:23 AM CDT Height 162.6 cm (5' 4) 05/20/2023 10:23 AM CDT Body Mass Index 27.46 05/20/2023 10:23 AM CDT Plan of Treatment Health Maintenance Due Date Last Done Comments HIV SCREENING 2016 HPV VACCINE (1 - 3-dose series) 2016 MENINGOCOCCAL (Group B) VACCINE SHARED DECISION-MAKING (1 of 2 - Standard) 2017 HEPATITIS C SCREENING 07/02/2019 DTAP/TDAP/TD VACCINES (1 - Tdap) 2020 HEPATITIS B VACCINE (1 of 3 - 19+ 3-dose series) 2020 PNEUMOCOCCAL VACCINE (1 of 2 - PCV) 2020 CHLAMYDIA/GONORRHEA SCREENING 05/13/2024 05/13/2023 COVID-19 VACCINE (4 - season) 2024 11/19/2021, 03/10/2021, 02/16/2021 DEPRESSION SCREENING 11/22/2024 05/13/2023 INFLUENZA VACCINE (#1) 2025 , 08/30/2020, 09/30/2017, Additional history exists PAP SMEAR 05/13/2026 05/13/2023 ZOSTER VACCINE (1 of 2) 2051 HIB VACCINE Aged Out No longer eligi ble based on patient's age to complete this topic MENINGOCOCCAL GROUPS A/C/Y/W VACCINE Aged Out No longer eligible based on patient's age to complete this topic Procedures Procedure Name Priority Date/Time Associated Diagnosis Comments PAP IG LB CT+NG RFLX HPV APTIMA ASCU Routine 05/13/2023 11:22 AM CDT Well woman exam with routine gynecological exam from Last 3 Months or Most Recently Relevant to Health Maintenance Results * PAP IG LB CT+NG RFLX HPV APTIMA ASCU (05/13/2023 11:22 AM CDT) Diagnosis [facility] ACCOUNT BILL Comment:NEGATIVE FOR INTRAEP ITHELIAL LESION OR MALIGNANCY. Specimen Adequacy [facility] ACCOUNT BILL Comment: Satisfactory for evaluation. Endocervical and/or squamous metaplastic cells (endocervical component) are present. Clinician Provided ICD10 [facility] ACCOUNT BILL Comment:Z01.419 Performed by [facility] ACCOUNT BILL Comment:Brad Haider totechnologist (ASCP) Comment . [facility] ACCOUNT BILL Note [facility] ACCOUNT BILL Comment: The Pap smear is a screening test designed to aid in the detection of premalignant and malignant conditions of the uterine cervix. It is not a diagnostic procedure and should not be used as the sole means of detecting cervical cancer. Both false-positive and false-negative reports do occur. . IGLBP CPT Code Automation [facility] ACCOUNT BILL Comment: This liquid based ThinPrep(R) pap test was screened with the use of an image guided system. Note [facility] ACCOUNT BILL Comment: The HPV DNA reflex criteria were not met with this specimen result therefore, no HPV testing was performed. . Chlamydia trachomatis NORMAN Negative Negative [facility] ACCOUNT BILL GC DNA Probe Negative Negative [facility] ACCOUNT BILL PART OF UTERINE CERVIX / Unknown 05/13/2023 11:22 AM CDT 05/13/2023 Narrative [facility] ACCOUNT BILL - 05/17/2023 3:08 PM CDT No. of containers..01 ThinPrep Vial Resulting Agency Comment Lab Testing performed at: [address] [id number] Elvira Mendiola MD LAB - PATHOLOGY/CYTOLOGY ORDERAB LES Final Result [facility] ACCOUNT BILL [address] [place] [address] from Last 3 Months or Most Recently Relevant to Health Maintenance Insurance [employer] Care Teams Mental Health Professional Relationship Specialty Start Date End Date Pcp, Gaye Elliott - PCP - General 06/06/24
--- OUTSIDE RECORDS SUMMARY | 2025-06-04 01:09 | XMS_ITS | Clinical Summary ---
Author Organization [facility] Building Address [address] [place] [phone] Care Team Providers Care Energy And Sustainability Manager Name Role Phone John Garza NP Primary Care Provider [phone] Allergies Active Allergy Reactions Criticality Noted Date [...] Future Ambulatory referral to General Surgery; Future Encounters Date Type Department Care Team Description 06/01/2025 1:30 PM CDT Office Visit [facility] Medical [facility] Primary Care at [address] [phone] John Garza NP Anxiety (Primary Dx) 05/16/2025 Results Follow-Up [facility] [address] [phone] Ingrid Hector MD [place] Thyroid Imaging with Uptakes 05/09/2025 7:33 AM CDT - 05/09/2025 11:59 PM CDT Hospital Encounter [facility] [address] [place] [address] Discharge Disposition: Discharge to home or self care 05/09/2025 7:32 AM CDT - 05/09/2025 11:59 PM CDT Hospital Encounter [address] [address] Abnormal thyroid function test; Left thyroid nodule Discharge Disposition: Discharge to home or self care 04/02/2025 Results Follow-Up [facility] [address] [phone] Ingrid Hector MD Thyroid peroxidase antibody (TPO), T3, free, T4, free, TSH 03/30/2025 12:00 PM CDT Lab [address] [address] Abnormal thyroid function test 03/30/2025 11:30 AM CDT Office Visit [facility] [id number] [place] [address] [address] [place] [address] Ingrid Hector MD Abnormal thyroid function test (Primary Dx); Left thyroid nodule 03/29/2025 Documentation [facility] Medical [facility] Primary Care at [address] [phone] John Garza NP 03/27/2025 Results Follow-Up [facility] Primary Care at [address] [phone] John Garza NP 48 HR Holter Monitor 03/19/2025 Results Follow-Up [facility] Primary Care at [address] [phone] John Garza NP Cytology 03/14/2025 8:05 AM CDT - 03/14/2025 11:59 PM CDT Hospital Encounter [facility] [address] [place] [phone] 2, Amh David Rn David, Jairo Ir Thyroid nodule Discharge Disposition: Discharge to home or self care 03/13/2025 8:04 AM CDT - 03/13/2025 11:59 PM CDT Hospital Encounter [facility] Cardiology [address] [place] [address] Palpitations Discharge Disposition: Discharge to home or self care 03/09/2025 Telephone [facility] Primary Care at [address] [phone] John Garza NP 03/06/2025 Telephone [facility] [address] [place] [address] Elvira Olvera RN 03/06/2025 Telephone [facility] Diabetes and Endocrinology [address] [place] [phone] Ingrid Hector MD New referral to Endocrinology 03/05/2025 Telephone [facility] [address] [place] [address] Elvira Olvera RN 03/05/2025 Orders Only [facility] Medical Group Primary Care at [address] [phone] John Garza NP Thyroid nodule (Primary Dx) 03/05/2025 Telephone [facility] Medical [facility] Primary Care at [address] [phone] Shameka Hollis MA General Surgery Referral 03/05/2025 Orders Only [facility] [address] [place] [address] Marissa Quinones MA from Last 3 Months Immunizations Immunization Administration Dates Next Due DTP 10/10/2002, 2,2001,09/06 HPV, Quadrivalent 11/17/2013,07/03/2013,07/06/20 12 Hep B, Adolescent or Pediatric 01/10/2002,2000,2001 HiB 07/11/2002, 2,2001,09/06 IPV 01/10/2002,2001,2001 Influenza, Quadrivalent, Spl it, Preservative Free, Intramuscular 08/30/2020,09/30/2017,10/22/2014 Influenza, Trivalent, IM (MDV) 09/18/2021 Influenza, Trivalent, Preser vative Free, Intramuscular 10/05/2012 MMR 07/11/2002 Meningococcal MCV4P (Menactra) 07/30/2017,2012 Pneumococcal Conjugate 7-Valent 07/11/20 02,01/10/2002,2001,09/06 Tdap 2012 Varicella 07/11/2002 Medical History Medical History Date Comments Depression Anxiety Anemia Asthma Thyroid disease Brain concussion Migraines Family History Medical History Relation Name Comments Alcohol abuse Father Gurjit Drug abuse Father Gurjit Hypertension Father Gurjit Cancer Maternal Grandfather Brian Hypertension Maternal Grandfather Brian Hypertension Maternal Grandmother Tiffanie Kidney disease Maternal Grandmother Tiffanie Supraventricular tachycardia Mother COPD Paternal Grandfather Josesito Immunodeficiency Sister Relation Name Status Comments Father Gurjit Alive Maternal Grandfather Brian Alive Maternal Grandmother Tiffanie Alive Mother Alive Paternal Grandfather Josesito Alive Sister Alive Social History Tobacco Use Types Packs/Day [...] on file 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 Gender Identity Not on file Sexual Orientation Not on file Obstetrics History Last Filed Vital Signs Vital Sign Reading [...] 06/01/2025 1:36 PM CDT Plan of Treatment Health Maintenance Due Date Last Done Comments Hepatitis C Screening 2001 Pneumococcal vaccine <65 (1 of 1 - PPSV23) 2007 07/11/2002, 01/10/2002, 2001, Additional history exists Meningococcal B Vaccine (1 of 2 - Standard) 2017 Regular Well Visit/Exam 18-64 2019 DTaP/Tdap/Td Vaccine (6 - Td or Tdap) 2022 2012, 10/10/2002, 01/10/2002, Additional history exists Influenza Vaccine (#1) 2025 , 08/30/2020, 09/30/2017, Additional history exists Covid-19 Vaccine ( season) 2026 11/19/2021, 03/10/2021, 02/16/2021 Postponed from 07/23/2024 (Patient declined, but will receive in the future) Cervical Cancer Screening 05/13/2026 05/13/2023 Depression Screening 06/01/2026 06/01/2025, 03/02/20 Hepatitis B Screening Completed 01/10/2002 , 2001, 2001 Varicella Vaccines Discontinued 07/11/2002 HPV Vaccines Completed 11/17/2013, 06/22, 2012 Procedures Procedure Name Priority Date/Time Associated Diagnosis [...] Electronically signed by Richard Ghosh M.D. CH: EARLE Report ID: [id number] Reading Location: [id number] Procedure Note Richard Ghosh Jr., MD - [...] Richard Ghosh M.D. CH: CH Report ID: [id number] Reading Location: [id number] Ingrid Fuller MD [facility] PROCEDURES F inal Result * TSH receptor antibody (03/30/2025 12:02 PM CDT) TSH receptor ab <1.10 0.00 - 1.75 IUnits/L [facility] Comment: ADDITIONAL INFORMATION At a decision limit of 1.75 IU/L, this assay has 97% sensitivity and 99% specificity for detection of Graves' disease. In healthy individuals and in patients with thyroid disease without diagnosis of Graves' disease, the upper limit of anti-TSHR values are 1.22 IU/L and 1.58 IU/L, respectively (97.5th percentiles). Test Performed by: [place] [id number] [place] [id number] Flight Service Agent: Estrellita Barrera Ph.D.; CLIA# [id number] Blood 03/30/2025 12:0 2 PM CDT 03/30/2025 6:36 PM CDT Ingrid Fuller MD LAB BLOOD ORDERABLE S Final Result Performing Organization Address City/[facility] Co de Phone Number ILDEFONSO OG [address] [place] [address] [facility] * Thyroid peroxidase antibody (TPO) (03/30/2025 12:02 PM CDT) Anti Thyroid Peroxidase <30 <=34 IUnits/mL Comment: ATPO Interpretive Data Results may be up to 28% higher in patients receiving Itraconazole. Current interpretive data was last revised 2021. Testing performed by: [facility], [address] [place]., [address] Blood 03/30/2025 12:0 2 PM CDT 03/30/2025 9:38 PM CDT Ingrid Fuller MD LAB BLOOD ORDERABLE S Final Result Performing Organization Address City/[facility] Co de Phone Number ILDEFONSO OG [address] [address] [place] [address] * Thyroid stimulating immunoglobulin (03/30/2025 12:02 PM CDT) TSIG <1.0 <=1.3 [facility] Comment: Test Performed by: [place] [id number] Flight Service Agent: Estrellita Barrera Ph.D.; CLIA# [id number] Blood 03/30/2025 12:0 2 PM CDT 03/30/2025 6:49 PM CDT us Ingrid Fuller MD LAB BLOOD ORDERABLE S Final Result JUANLUIGI OG [address] [facility] [place] [address] [facility] ref [facility] * T3, free (03/30/2025 12:02 PM CDT) Free T3 4.0 2.0 - 4.4 pg/mL Blood 03/30/2025 12:0 2 PM CDT 03/30/2025 6:36 PM CDT us Ingrid Fuller MD LAB BLOOD ORDERABLE S Final Result Performing Organization Address [facility] Co de Phone Number JUANLUIGI OG [address] [address] [facility] [place] [address] * (ABNORMAL) TSH (03/30/2025 12:02 PM CDT) Thyroid Stimulating Hormone 0.02(L) 0.30 - 4.20 mcIUnit/mL Blood 03/30/2025 12:0 2 PM CDT 03/30/2025 6:36 PM CDT us Ingrid Fuller MD LAB BLOOD ORDERABLE S Final Result Performing Organization Address City/[facility]/ZIP Co de Phone Number ILDEFONSO EARLE [address] [address] [facility] [place] [address] * T4, free (03/30/2025 12:02 PM CDT) Free T4 1.07 0.90 - 1.70 ng/dL Blood 03/30/2025 12:0 2 PM CDT 03/30/2025 6:36 PM CDT us Ingrid Fuller MD LAB BLOOD ORDERABLE S Final Result Performing Organization Address City/[facility]/ZIP Co de Phone Number ILDEFONSO OG [address] Department [place] [address] * US Guided Thyroid Fine Needle Aspiration 1st Lesion (03/14/2025 9:59 AM CDT) Anatomical Region Laterality Modality Thyroid N/A Ultrasound 03/14/2025 12:3 4 PM CDT Addenda Addendum by Paul Martino DO on 03/15/2025 2:58 PM CDT ADDENDUM: This addendum report supersedes the original report dated Pathology impression: 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 Pending Afirma testing. END OF ADDENDUM REPORT THIS IS AN ELECTRONICALLY VERIFIED FINAL REPORT 03/15/2025 2:58 PM Addendum Electronically signed by Paul Martino D.O. PS: PS Report ID: [id number] Reading Location: [id number] [facility] 03/14/2025 12:35 PM CDT EXAM DESCRIPTION: US [...] Electronically signed by Paul Martino D.O. PS: DANE Report ID: [id number] Reading Location: [place] [address] Procedure Note Paul Martino DO - 03/14/2025 EXAM DESCRIPTION: US GUIDED [...] Electronically signed by Paul Martino D.O. PS: DANE Report ID: [id number] Reading Location: [place] [address] us John Garza NP IMG US PROCEDURES Edited Resu lt - Final * Cytology (03/14/2025 12:00 AM CDT) Fluid (Thyroid Gland (Cytology)) 03/14/2025 9:42 AM CDT Narrative PATHOLOGY [facility] (OLYA) - 03/15/2025 2:18 PM CDT EPIC results best viewed via link to PDF [facility] Department of Pathology [address] [place], [place] [id number] Note to Patients: This report may contain [...] with Addendum Patient Name: TIMOTEO SYKES Address: [address] [place] [address] Gender: F : 2000 (Age: 24) Service: Location: [facility] : [id number] 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 - Pending Afirma testing. Bhargav Lizama M.D. Report Electronically Reviewed and Signed Out By Bhargav Lizama M.D. 03/15/2025 14:18:56VANESSA Longoria([facility])Addenda: Addendum Addendum Comment [facility] thyroid molecular analysis on the left lower nodule fine-needle aspirate (Nodule A on the Afirma report) The report can be viewed in the patient s electronic medical record. If access to the EMR is not available, please call pathology for a hard copy of the report ([phone]). Bhargav Lizama M.D.Report Electronically Reviewed and Signed [...] best classified as atypia of undetermined significance ([place] 3). A sample will be sent for Afirma attesting and the results will be reported in an addendum. The performance characteristics of some immunohistochemical stains, fluorescence in-situ hybridization tests and immunophenotyping by flow cytometry cited in this report (if any) were determined by the Surgical Pathology Department at [facility] as part of an ongoing senior software quality engineer program and in compliance with federally [...] characteristics determined by the Surgical Pathology Department [facility]. It has not been cleared or approved by the U. S. Food and Drug Administration. Unless otherwise noted all cytology processing, staining and screening is performed at [facility] ([address] [place] [address]). REPORT IMAGES AND SCANNED DOCUMENTS, IF INCLUDED, ONLY VIEWABLE IN PDF VERSION OF REPORT John Garaz NP LAB CYTOLOGY ORDERABLES Final Result PATHOLOGY [facility] ([address] [address] * 48 HR Holter Monitor (03/13/2025 8:08 AM CDT) Anatomical Region Laterality Modality Electrocardiogra phy 03/13/2025 8:20 AM CDT Narrative 03/26/2025 2:16 PM CDT [address] [address] HOLTER MONITOR Patient Name: TIMOTEO SYKES : 2000 Study Date: 03/13/2025 8:20:50 AM Gender: F Tech: Ref Provider: JOHN GARZA Height(Cm): BSA: Weight(Kg): Order Provider: JOHN GARZA PROCEDURES: Holter Report: Holter Monitor Report. INDICATIONS: R00.2 Palpitations. FINDINGS: Protocol: Recording Duration (Ordered): [id number] Number of Diary entries 2025-03-13 08:20:50 CONCLUSIONS: [...] Procedure Note Brian Hanson MD - 03/26/[address] [address] HOLTER MONITOR Patient Name: TIMOTEO SYKES : 2000 Study Date: 03/13/2025 8:20:50 AM Gender: F Tech: Ref Provider: JOHN GARZA Height(Cm): BSA: Weight(Kg): Order Provider: JOHN GARZA PROCEDURES: Holter Report: Holter Monitor Report. INDICATIONS: R00.2 Palpitations. FINDINGS: Protocol: Recording Duration (Ordered): [id number] Number of Diary entries 2025-03-13 08:20:50 CONCLUSIONS: [...] Most Recently Relevant to Health Maintenance Insurance [facility] [employer] Care Teams Energy And Sustainability Manager Relationship Specialty Start Date End Date John Garza NP [address] [address] PCP - General Internal Medicine 03/02/25
--- OUTSIDE RECORDS SUMMARY | 2025-06-04 01:09 | XMS_ITS | Clinical Summary ---
Author Organization [facility] Address [address] [place] [address] Care Team Providers Care Vat Operator Name Role Phone Unavailable Primary Care Provider Unavailabl e Social History Tobacco Use Types Packs/Day Years Used Date Smoking Tobacco: Never Assessed Comments Unknown Sex and Gender Information Value Date Recorded Sex Assigned at Not on file Legal Sex Female 1:18 PM CDT Gender Identity Not on file Sexual Orientation Not on file Plan of Treatment Health Maintenance Due Date Last Done Comments CHLAMYDIA SCREENING (ANNUAL) 11-24 YEARS 2012 HPV VACCINES (1 - 3-dose series) 2016 DTAP/TDAP/TD VACCINES (1 - Tdap) 2020 HEPATITIS B VACCINES (1 of 3 - 19+ 3-dose series) 06/22 CERVICAL CANCER SCREENING 2022 HPV/Cotest (21-29) 2022 PAP SMEAR 2022 INFLUENZA VACCINE (#1) 2025 Insurance BCBS BLUE ACCESS/TRUE BLUE PPO
--- NOTE | 2025-06-04 07:26 | WPDANESEPPF ---
Anes - Initial Pre Proc Eval Procedure: Operation Date: 06/04/25 10:30 Proposed Procedures p Bilateral Laparoscopic Salpingectomy - Dario Hou MD Date/Time: 06/04/25 07:26 Surgeon: Dario Hou MD Pre Op Diagnosis: desires sterilization Patient Data Age: 24 Gender: F Height: 1.63 m Weight: 106.81 kg Allergies Allergy/AdvReac Type Severity Reaction Status Date / Time sulfamethoxazole Allergy Severe Hives / Verified 05/23/25 15:13 Red Face trimethoprim Allergy Severe Hives / Verified 05/23/25 15:13 Red Face Home Medications ?Medication ?Instructions ?Recorded ?Confirmed ?Type fluoxetine 10 mg capsule 10 mg PO DAILY 05/23/25 05/23/25 History norethindrone 1 mg-ethinyl 1 tablet PO DAILY 05/23/25 05/23/25 History estradiol 35 mcg tablet (Nortrel) Patient hx anesthesia problems: none Family hx anesthesia problems: none Results Review: All pre-operative results and documents have been reviewed as part of the pre-operative evaluation. [facility] Past Medical History Medical History Anxiety Hyperthyroidism Asthma Surgical History Surgical History No significant past surgical history Social History Social History Smoking status: Never smoker Tobacco type: e-cigarettes/vaping Second hand tobacco smoke exposure: No Additional smoking assessment comments: VAPES DAILY Alcohol intake: current Alcohol use details: SOCIALLY Substance use: never Substance use type: does not use Living arrangements: with family Additional living arrangements comments: BOYFRIEND Spiritual care concerns: No Anes - Eval Final PreProcedure Day of Procedure 06/04/25 07:26 Patient weight: morbidly obese Heart: regular rate and rhythm Lungs: clear to auscultation Airway: Mallampati scale class III Neurological: alert and oriented Last oral intake: >/= 8 hours ASA classification: III Emergent: no Anesthetic plan: proceed Anesthesia type and monitoring: general ETT and standard monitoring Results Review: All pre-operative results and documents have been reviewed as part of the pre-operative evaluation. Informed Consent: The patient's anesthetic plan and its attendant risks and benefits were discussed with the patient/family/POA. Questions were solicited and answers provided to the satisfaction of the patient/family/POA.
--- NOTE | 2025-06-04 07:49 | PM.IMHP ---
H&P: HPI History of Present Illness Date/Time: 06/04/25 07:49 Chief Complaint: desires sterilization Narrative: Patient is 24 year old female who presents for bilateral salpingectomy. She does not desire any future childbearing. Risks, benefits, and alternatives to the procedure discussed with patient who voices understanding. Denies abdominal pain, dysuria, fevers or chills. Review of Systems Review of Systems: All systems reviewed & are unremarkable except as noted in HPI and below PMFSH Past Medical History Medical History Anxiety Hyperthyroidism Asthma Surgical History Surgical History No significant past surgical history Social History Social History Smoking status: Never smoker Tobacco type: e-cigarettes/vaping Second hand tobacco smoke exposure: No Additional smoking assessment comments: VAPES DAILY Alcohol intake: current Alcohol use details: SOCIALLY Substance use: never Substance use type: does not use Living arrangements: with family Additional living arrangements comments: BOYFRIEND Spiritual care concerns: No Meds Home Medications and Allergies Home Medications ?Medication ?Instructions ?Recorded ?Confirmed ?Type fluoxetine 10 mg capsule 10 mg PO DAILY 05/23/25 05/23/25 History norethindrone 1 mg-ethinyl 1 tablet PO DAILY 05/23/25 05/23/25 History estradiol 35 mcg tablet (Nortrel) Allergies Allergy/AdvReac Type Severity Reaction Status Date / Time sulfamethoxazole Allergy Severe Hives / Verified 06/04/25 09:25 Red Face trimethoprim Allergy Severe Hives / Verified 06/04/25 09:25 Red Face Exam Const: General: comfortable and no acute distress Eyes: General: appearance normal, both eyes and all related structures Resp: Effort & Inspection: normal respiratory effort Cardio: Rate: regular rate Psych: Mental Status: mental status grossly normal Assessment and Plan Assessment and plan (1) Encounter for sterilization: Code(s): Z30.2 - Encounter for sterilization Status: Acute Assessment and Plan: - risks, benefits, and alternatives to the procedure, including the permanent and irreversible nature of the procedure discussed with patient who voices understanding - will proceed with laparoscopic bilateral salpingectomy
[2025-06-04] MEDS: KETOROLAC 15 MG/ML VIAL (*BKC) IV PUSH (09:23)
[2025-06-04] MEDS: ACETAMINOPHEN 500 MG TABLET 1000 MG PO (09:23)
[2025-06-04] MEDS: LACTATED RINGERS 1,000 ML 30 ML IV CONT ×2 (09:23→11:30)
[2025-06-04 09:31] LABS: BEDSIDEPREGUCG Negative (Negative)
--- NOTE | 2025-06-04 10:27 | WPDHPUPDATE1 ---
History and Physical Update Update Date/Time: 06/04/25 10:27 History and Physical has been reviewed, including an updated exam of the patient. There are NO changes in the patient's condition. Risks, benefits, and alternatives have been discussed and questions answered. Patient agrees to proceed with procedure.
--- NOTE | 2025-06-04 11:11 | S_PTH ---
PATIENT: Dario Thacker LOC: [facility] U#:[id number] AGE/SX: 24/F ROOM: RE06/04/[address]: Dario Hou MD : 2000 BED: DIS: 06/04/2025 SPEC #: [id number] RECD: 06/04/25 11:52 STATUS: RICO RE #: [id number] MERLIN: 06/04/25 11:[address]: Dario Hou DEPT: [facility] Surgical RECD BY: Maxime Mcconnell Tissues: A - Fallopian Tube Bilateral Procedures: Gross and Microscopic Level 2 Hematoxylin and Eosin Stain
--- NOTE | 2025-06-04 11:50 | W.PM.PROC2 ---
Procedure Note - Detailed Date of Procedure 06/04/25 Pre-op Diagnosis desires sterilization Post-op Diagnosis Same Procedure Performed laparoscopic bilateral salpingectomy Surgeon Dario Hou MD Anesthesia General Indications desires permanent sterilization Findings normal appearing uterus, bilateral tubes and bilateral ovaries Description of Procedure With IV fluids infusing, the patient was taken to the operating room. The patient was placed in supine position. General anesthesia with endotracheal intubation was given. A time-out took place. The patient was placed in dorsal lithotomy position using Mp stirrups and she was prepped and draped in the usual sterile fashion. The bladder was drained using a red rubber catheter. A 5 mm incision was made in the umbilicus. Under direct visualization with the scope, the umbilical port was inserted without difficulty. Another two trocars were placed under direct visualization in the left upper and left lower quadrants. The patient was placed in Trendelenburg and inspection of the pelvis noted the above findings. Appropriate pictures were taken. Using the LigaSure device, a left salpingectomy was performed in the usual fashion. Care was taken to avoid the IP ligament. The salpingectomy went smoothly. The same procedure was repeated on the right side. The instruments were all removed from the abdomen and the CO2 gas was allowed to escape. The three skin incisions were reapproximated with 4-0 Polysorb in a subcuticular manner, followed by skin glue. The acorn manipulator and single tooth tenaculum was removed from the uterus and cervix, respectively. The tenaculum sites were hemostatic. All instruments were removed from the vagina. At the end of the case, instrument, sponge and needle counts were correct x 2. The patient was awakened from general anesthesia and was taken to PACU in stable condition. Estimated Blood Loss 5 Pathology Yes Complications No immediate complications Condition Stable Disposition Same day
[2025-06-04] MEDS: fentaNYL CITRATE INJ (*CRX) 100 MCG/2 ML VIAL 25 MCG IV PUSH ×4 (11:57→12:13)
== END 2025-06-04 14:00 | disposition home or self-care (01) ==
PROVIDERS: Visit Provider Obstetrics & Gynecology
PROC: (CPT 49320; principal; 2025-06-04 10:30)
DX: Z30.2 Encounter for sterilization (principal); F17.290 Nicotine dependence, other tobacco product, uncomplicated; E66.01 Morbid (severe) obesity due to excess calories; Z68.41 Body mass index [BMI] 40.0-44.9, adult
CPT/HCPCS: 58661; 88302; A9270; J1100; J1885; J2003; J2250; J2405; J2704; J3010; J7120